=== PATIENT | male | born 1985 | race Caucasian/White ===

== ENCOUNTER → 2020-05-11 12:14 | Outpatient (BNVA) | payer BC, SELFPAY | PROVIDERS: Family Provider Family Medicine; PCP Family Medicine; Visit Provider Nurse Practitioner Family | DX: Z20.828 Contact with and (suspected) exposure to other viral communicable diseases (principal) | CPT/HCPCS: 87635 ==

== ENCOUNTER → 2021-05-04 00:01 | Outpatient (BNVA) | payer BC, SELFPAY | PROVIDERS: PCP Family Medicine; Visit Provider Registered Nurse Neonatal Intensive Care | DX: Z20.822 Contact with and (suspected) exposure to COVID-19 (principal) | CPT/HCPCS: 87426 ==

== ENCOUNTER 2021-09-13 16:45 | Emergency (ER) | payer BC, SELFPAY ==
[2021-09-13 16:48] VITALS: BP 141/89; PULSE 66; RESP 18; TEMP 36.6; O2SAT 92; BMI 25.1
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
[2021-09-13 16:53] VITALS: BP 139/94; PULSE 88; RESP 18; O2SAT 96
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
[2021-09-13] MEDS: tetanus-dipt-pertussis 0.5 mL SDV IM (17:01)
[2021-09-13 17:09] VITALS: BP 145/89; PULSE 88; RESP 18; TEMP 36.7; O2SAT 96
== END 2021-09-13 17:20 | disposition home or self-care (01) ==
PROVIDERS: Emergency Provider Emergency Medicine; PCP Family Medicine
DX: T20.16XA Burn of first degree of forehead and cheek, initial encounter (principal); T22.10XA Burn of first degree of shoulder and upper limb, except wrist and hand, unspecified site, initial encounter; T31.0 Burns involving less than 10% of body surface; Z23 Encounter for immunization
CPT/HCPCS: 71045; 90471; 90715; 99283

== ENCOUNTER → 2024-05-09 09:55 | Outpatient (BNVA) | payer BC, SELFPAY | PROVIDERS: Visit Provider Internal Medicine Cardiovascular Disease | DX: R07.9 Chest pain, unspecified (principal); R03.0 Elevated blood-pressure reading, without diagnosis of hypertension; R93.89 Abnormal findings on diagnostic imaging of other specified body structures | CPT/HCPCS: 36415; 82533; 84443; 93005 ==

== ENCOUNTER 2024-06-12 11:50 | Outpatient (CLI) | payer BC, SELFPAY ==
[2024-06-12 11:58] VITALS: BMI 27.2
--- NOTE | 2024-06-12 11:58 | ECG_ITS ---
[facility] Test Date: 2024-06-12 Pat Name: Fabian Lozoya Department: Room: Gender: Male Rn Wom[facility] Health: : 1985 Requested By: Jake Tolliver Order Number: [id number] Venecia MD: José Parikh M.D. Interpretive Statements EXERCISE STRESS TEST EXERCISE DATA: The patient was exercised by Juan Carlos protocol. Baseline heart rate was 107 beats per minute. Baseline blood pressure was 134/86 millimeters of mercury. Maximal predicted heart rate was 183 beats per minute. Maximum heart rate achieved was 187, which was 102% of the maximum predicted heart rate. Maximum blood pressure cmx443/61 millimeters of mercury. Total exercise time was 10 minutes and 31 seconds. Maximum METs achieved was 13.5. The reason for ending the test was completion of protocol. The patient complained of shortness of breath during the stress test, which then resolved at the end of the test. ELECTROCARDIOGRAM: BASELINE: Showed sinus rhythm, normal axis, no significant ST-T changes at the baseline noted. [] EXERCISE: At the peak exercise level, [] No significant ST-T changes suggestive of ischemia noted. [] RECOVERY: During the recovery period, heart rate dropped appropriately. No significant ST-T changes in the recovery suggestive of ischemia noted. [] CONCLUSION: 1. Exercise capacity is excellent 2. Heart rate response was appropriate 3. Blood pressure response was appropriate 4. Symptoms not suggestive of ischemia. 5. Stress test not suggestive of ischemia. Electronically Signed On 07-03-2024 22:18:30 CDT by José Parikh M.D. [email or web address]
[2024-06-12 12:39] VITALS: BP 158/66; PULSE 120
--- NOTE | 2024-06-12 14:15 | USCV_ITS ---
Fabian Lozoya Age: 39 Gender: M : 1985 Exam Date: 06/12/2024 14:07 Ordering Phys: Jake Tolliver MD ([email or web address]) Technologist: CT [place] [facility] [place] cp BP: 140 / 90 HR: 87 Rhythm: Sinus Technical Quality: Adequate MEASUREMENTS (Male / Female) Normal Values 2D ECHO LVOT Diameter 2.1 cm LV Ejection Fraction MOD 4C 68.7 % LV Ejection Fraction MOD 2C 60.6 % LV Ejection Fraction 2C AL 60.9 % LA Diameter 2.9 cm RA Systolic Volume 4C AL 32.6 ml RA Systolic Volume 4C MOD 30.2 ml LA Sys Volume AL 36.6 cm cubed LA Sys Volume Index AL 17.2 cm cubed/m squared Aorta at Sinotubular Diameter 2.5 cm IVC Diameter 1.7 cm M-MODE LA Ao Ratio MM 1.3 AV Cusp Separation MM 1.8 cm DOPPLER AV Peak Velocity 116.0 cm/s LVOT Peak Velocity 111.0 cm/s AV Area Cont Eq vti 4.0 cm squared AV Area Cont Eq pk 3.3 cm squared MV Peak Velocity 79.0 cm/s MV Area PHT 4.4 cm squared Mitral E to A Ratio 1.1 TV Peak E Velocity 82.0 cm/s PV Peak Velocity 115.5 cm/s FINDINGS Left Ventricle Normal left ventricular size, systolic function and wall thickness, with no regional wall motion abnormalities. Left ventricular ejection fraction is estimated at 60%. Grade I/IV diastolic dysfunction (abnormal relaxation filling pattern), normal to mildly elevated filling pressures. Right Ventricle The right ventricle is normal in size and function. Right Atrium The right atrium is normal in size. Left Atrium The left atrium is normal in size. Mitral Valve Structurally normal mitral valve without significant stenosis or prolapse. There is trace mitral regurgitation. Aortic Valve Structurally normal aortic valve without significant sclerosis or stenosis. There is no aortic regurgitation. Tricuspid Valve Structurally normal tricuspid valve without significant stenosis or regurgitation. Pulmonary artery systolic pressure is normal. Pulmonic Valve Structurally normal pulmonic valve without significant stenosis. There is no pulmonic regurgitation. Pericardium Normal pericardium without effusion. Aorta Normal ascending aorta dimension. IVC The inferior vena cava appears normal. CONCLUSIONS Normal left ventricular size, systolic function and wall thickness, with no regional wall motion abnormalities. Left ventricular ejection fraction is estimated at 60%. Grade I/IV diastolic dysfunction (abnormal relaxation filling pattern), normal to mildly elevated filling pressures. There is no pericardial effusion. No significant valve abnormalities. Right atrial pressure is around 5 mm of mercury. Jake Tolliver MD (Electronically Signed) Final Date: 25 June 2024 11:27 S
--- NOTE | 2024-06-12 15:45 | US_ITS ---
WS: [id number] ULTRASOUND RENAL TECHNIQUE: Ultrasound examination of both kidneys. CLINICAL INFORMATION: hypertension COMPARISON: None. FINDINGS: RIGHT: Right kidney is normal in size and appearance. Echogenicity: Normal. Cortical thickness: 1.2 cm; Normal. Hydronephrosis: None. Perinephric fluid: None. Right kidney measures: 9.7 cm x 4.4 cm x 4.5 cm. LEFT: Left kidney is normal in size and appearance. Echogenicity: Normal. Cortical thickness: 1.5 cm; Normal. Hydronephrosis: None. Perinephric fluid: None. Left kidney measures: 10.1 cm x 4.2 cm x 5.0 cm. Normal visualized aorta. Bladder is decompressed US/US renal BI* [id number] IMPRESSION: Normal renal ultrasound
== END 2024-06-12 11:51 | disposition home or self-care (01) ==
PROVIDERS: Visit Provider Internal Medicine Cardiovascular Disease
DX: R07.9 Chest pain, unspecified (principal); R03.0 Elevated blood-pressure reading, without diagnosis of hypertension; R93.1 Abnormal findings on diagnostic imaging of heart and coronary circulation
CPT/HCPCS: 76770; 93017; 93306